=== PATIENT | male | born 1950 | race Caucasian/White ===

== ENCOUNTER 2020-07-07 07:42 | Outpatient (REF) | payer MEDICARE, SELFPAY ==
[2020-07-07 11:42] LABS: Alanine Aminotransferase 26 U/L (0-40); Albumin Level 4.6 g/dL (3.5-5.0); Alkaline Phosphatase 57 U/L (39-117); Anion Gap 15 (12-20); Aspartate Amino Transferase 44 U/L (5-37); Bilirubin Total 0.4 mg/dL (0.0-1.0); Blood Urea Nitrogen 42 mg/dL (9-16); Calcium 9.3 mg/dL (8.4-10.2); Carbon Dioxide 25 mmol/L (22-29); Chloride 107 mmol/L (96-108); Estimated Glomerular Filt Rate 43; Glucose Fasting 94 mg/dL (60-99); Potassium 5.5 mmol/l (3.3-5.1); Sodium 141 mmol/L (135-145); Total Protein 7.1 g/dL (6.5-8.0)
== END 2020-07-07 07:43 | disposition home or self-care (01) ==
LOC: HO.HMGCLDS 07:42
PROVIDERS: PCP Nurse Practitioner Family; Visit Provider Nurse Practitioner Family
DX: H93.11 Tinnitus, right ear (principal)
CPT/HCPCS: 80053

== ENCOUNTER 2020-07-08 06:28 | Outpatient (REF) | payer MEDICARE, SELFPAY ==
[2020-07-08 11:51] LABS: Anion Gap 13 (12-20); Carbon Dioxide 26 mmol/L (22-29); Chloride 103 mmol/L (96-108); Potassium 5.1 mmol/l (3.3-5.1); Sodium 137 mmol/L (135-145)
== END 2020-07-08 06:29 | disposition home or self-care (01) ==
LOC: HO.HMGCLDS 06:28
PROVIDERS: PCP Nurse Practitioner Family; Visit Provider Nurse Practitioner Family
DX: E87.5 Hyperkalemia (principal)
CPT/HCPCS: 80051

== ENCOUNTER 2021-12-14 07:23 | Outpatient (REF) | payer MEDICARE, SELFPAY ==
[2021-12-14 11:35] LABS: Alanine Aminotransferase 14 U/L (0-40); Albumin Level 4.2 g/dL (3.5-5.0); Alkaline Phosphatase 54 U/L (39-117); Anion Gap 13 (12-20); Aspartate Amino Transferase 26 U/L (5-37); Bilirubin Total 0.2 mg/dL (0.0-1.0); Blood Urea Nitrogen 53 mg/dL (9-16); Carbon Dioxide 19 mmol/L (22-29); Chloride 112 mmol/L (96-108); Cholesterol 203 mg/dL; Estimated Glomerular Filt Rate 32; Glucose Fasting 95 mg/dL (60-99); HDL Cholesterol 36 mg/dL; LDL Cholesterol Calculated 140 mg/dl; Potassium 5.2 mmol/L (3.3-5.1); Sodium 139 mmol/L (135-145); Total Protein 6.6 g/dL (6.5-8.0); Triglycerides 137 mg/dL
[2021-12-14 11:58] LABS: Prostate Specific Antigen Scr 0.73 ng/mL (<0.05-4.0); TSH reflex Free T4 0.48 uIU/mL (0.32-4.0)
== END 2021-12-14 07:24 | disposition home or self-care (01) ==
LOC: HO.HMGCLDS 07:23
PROVIDERS: Visit Provider Nurse Practitioner Family
DX: Z12.5 Encounter for screening for malignant neoplasm of prostate (principal); I10 Essential (primary) hypertension
CPT/HCPCS: 36415; 80053; 80061; 84153; 84443

== ENCOUNTER 2022-08-23 06:37 | Outpatient (REF) | payer MEDICARE, SELFPAY ==
[2022-08-23 12:24] LABS: Alanine Aminotransferase 17 U/L (0-40); Albumin Level 4.1 g/dL (3.5-5.0); Alkaline Phosphatase 59 U/L (39-117); Anion Gap 12 (12-20); Aspartate Amino Transferase 26 U/L (5-37); Bilirubin Total 0.2 mg/dL (0.0-1.0); Blood Urea Nitrogen 43 mg/dL (9-16); Calcium 8.7 mg/dL (8.4-10.2); Carbon Dioxide 18 mmol/L (22-29); Chloride 116 mmol/L (96-108); Estimated Glomerular Filt Rate 37; Glucose Random 100 mg/dL (60-115); Potassium 5.5 mmol/L (3.3-5.1); Sodium 140 mmol/L (135-145); Total Protein 6.3 g/dL (6.5-8.0)
== END 2022-08-23 06:38 | disposition home or self-care (01) ==
LOC: HO.HMGCLDS 06:37
PROVIDERS: PCP Nurse Practitioner Family; Visit Provider Nurse Practitioner Family
DX: N18.9 Chronic kidney disease, unspecified (principal)
CPT/HCPCS: 36415; 80053

== ENCOUNTER 2022-08-31 06:28 | Outpatient (REF) | payer MEDICARE, SELFPAY ==
[2022-08-31 11:52] LABS: Anion Gap 11 (12-20); Carbon Dioxide 19 mmol/L (22-29); Chloride 111 mmol/L (96-108); Sodium 136 mmol/L (135-145)
== END 2022-08-31 06:29 | disposition home or self-care (01) ==
LOC: HO.HMGCLDS 06:28
PROVIDERS: PCP Nurse Practitioner Family; Visit Provider Nurse Practitioner Family
DX: E87.5 Hyperkalemia (principal); N18.9 Chronic kidney disease, unspecified
CPT/HCPCS: 36415; 80051